=== PATIENT | female | born 1975 ===

== ENCOUNTER 2021-08-07 06:00 | Day surgery (SDC) | payer OTHER ==
[~2021-08-07] VITALS: Ht 167.6 cm; Wt 70.3 kg
[~2021-08-07 06:00] MED LIST: ZOLOFT25 MG PO
[2021-08-07] MEDS ORDERED: NAPR500T14 PO (16:53)
[2021-08-07] MEDS ORDERED: MORGIDOX100 MG PO (16:53)
== END 2021-08-07 20:20 | disposition home or self-care (01) ==
LOC: CIR.AMB 06:00
PROVIDERS: ATTEND Obstetrics & Gynecology
DX: D25.0 Submucous leiomyoma of uterus (principal); Z87.891 Personal history of nicotine dependence